=== PATIENT | male | born 1955 | race Caucasian/White ===

== ENCOUNTER 2017-08-28 01:28 | Emergency (ER) | payer BC ==
[2017-08-28] MEDS ORDERED: Metoclopramide 10 MG/2 ML SDV IM ONE (01:48)
[2017-08-28] MEDS ORDERED: Ketorolac 30 MG/ML SDV IM ONE (01:48)
[2017-08-28] MEDS ORDERED: HYDROmorphone 2 MG/ML SDV IM ONE (01:48)
[2017-08-28] MEDS ORDERED: HYDROmorphone 2 MG/ML SDV IVPUSH ONE (01:50)
[2017-08-28] MEDS ORDERED: Ketorolac 30 MG/ML SDV IVPUSH ONE (01:50)
[2017-08-28] MEDS ORDERED: Metoclopramide 10 MG/2 ML SDV IVPUSH ONE (01:51)
[2017-08-28] MEDS ORDERED: Sodium Chloride 0.9% 1,000 ML IV ONE (01:55)
[2017-08-28] MEDS ORDERED: Potassium Chloride 10% 20 MEQ/15 ML Soln 15 ML UD Cup PO ONE (02:53)
[2017-08-28] MEDS ORDERED: Acetaminophen/oxyCODONE 325-5 MG Tab PO ONE (02:53)
[2017-08-28] MEDS ORDERED: diphenhydrAMINE 50 MG/ML SDV IVPUSH ONE (03:06)
--- NOTE | 2017-08-28 10:47 | ER ---
DATE SEEN: 08/28/2017 Jeremy was seen at 0142 hours in the morning. CHIEF COMPLAINT: Left flank pain. History of kidney stones in the past. He does not have hypertension. Does not have a history of kidney bypass. Drinks 2 quarts of water a day. Three beers yesterday. This is the third time he had kidney stone. The second stone required lithotripsy in 2017. He has been without fever, vomiting, and the pain is 10/10. No previous other surgery, other serious illnesses, or hypertension. CURRENT MEDICATIONS: Lomotil p.r.n. ALLERGIES: None. REVIEW OF SYSTEMS: Otherwise negative except for what is noted. His is . Nonsmoker. Does drink alcohol - rarely, although he had 3 beers recently. 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 PHYSICAL EXAMINATION: GENERAL: His weight is 108 kilos. HEENT: PERRLA intact. Pharynx without abnormality. VITAL SIGNS: Blood pressure 162/54, heart rate 73, respirations 17, and oxygen saturation 97%. CONSTITUTIONAL: The patient is overweight. PERRL. Oral mucosa is dry. NECK: Supple. No thyromegaly. No tracheal tug. LUNGS: Clear, without rales, rhonchi, or wheezes. HEART: S1 and S2. No irregularity of rhythm. ABDOMEN: Soft. No guarding. There is right flank and left flank lower abdominal discomfort, marked CVA discomfort, right greater than left. GENITALIA: Negative. Lower extremities without abnormality. Dermis normal. Deep tendon reflexes normal. ASSESSMENT: Left ureterovesical stone, 4 mm, with hydroureter. Some stranding of the left perinephri kidney tissue. right intraparenchymal stone 5 mm. Urinalysis ordered but not recorded on the chart. Potassium 3.3, otherwise electrolytes normal. Sodium 150. CBC: Hemoglobin slightly elevated at 16.6 and GFR greater than 60 and BUN/creatinine ratio of 19. 1. Hypokalemia. 2. Left and right renal stones, left ureterovesical stone. He is about to pass it, very close to the junction. 3. No suggestion of infection. 4. Status post previous history of passing renal stones two other occasions. One occasion, had lithotripsy. 5. His blood pressure is briefly elevated. Hypertension is probably secondary to his pain. The patient had great pain relief with the Dilaudid 2 mg IV, Benadryl 50 mg orally, Toradol 10 mg, Reglan 10 mg IV. The Benadryl was given because of mild itching effects, histamine effect on his nose, and this seemed to diminish these symptoms. The patient off work tomorrow. Continue to drink 2 L of fluid a day. Avoid Gatorade with the glucose in it. He needs to get his weight down. I advised him that eating excessively diminishes his effect of walking. It cancels out his hard work on walking as a cattle rustler. He walks on the ground most of the time([employer], [employer] He will work with his on walking as much as he can, this means walking away from the [facility]. The patient was seen at 1:40 a.m., and the patient will be receiving potassium 20 mEq two doses daily for a total of 40 mEq daily for 1 week and then 20 mEq daily after that and follow up with his doctor. Get a basic metabolic panel to follow the status of his potassium. /[id number] SHARYN/GURU PENG
== END 2017-08-28 03:25 | disposition home or self-care (01) ==
LOC: FB.ED 01:28
DX: N20.2 Calculus of kidney with calculus of ureter (principal); E87.6 Hypokalemia; Z79.899 Other long term (current) drug therapy
CPT/HCPCS: 74176; 80053; 81001; 84550; 85025; 96374; 96375; 99284; A9270; J1170; J1200; J1885; J2765; J7030